=== PATIENT | male | born 1975 | race Caucasian/White ===

== ENCOUNTER → 2016-11-10 | Outpatient (CLI) | payer OTHER ==
[~2016-11-10] MED LIST: GABA1CAP4 PO; IBUP-103 PO; PRED20TA PO; TRAM-10 PO
--- NOTE | 2016-11-10 10:18 | DIAGNOSTIC IMAGING REPORT ---
MRI LUMBAR SPINE W/O CONTRAST CLINICAL HISTORY: Severe pain. Leg radiculopathy. TECHNIQUE: Sagittal and axial T1, T2 and STIR images were obtained. COMPARISON STUDY: 16 OBSERVATIONS: The vertebral bodies and posterior elements appear intact. There is no abnormal bony signal present to suggest a marrow replacement process. L1-2: There is a minor circumferential disc bulge. There is no significant spinal foraminal stenosis L2-3: No disc protrusions or extrusions. No evidence of spinal canal or neural foraminal compromise. L3-4: There is a mild circumferential disc bulge. There is no significant spinal or foraminal stenosis L4-5: There are postsurgical changes of a right hemilaminectomy. There is facet joint arthropathy. There is a small right posterior lateral and right lateral disc protrusion. There is mild deformity of thecal sac. There is no significant foraminal narrowing. L5-S1: There is a left lateral and foraminal disc protrusion with minor left-sided foraminal narrowing. The conus medullaris and cauda equina appear normal. IMPRESSION: 1. Small right lateral disc protrusion at the L4-5 level unchanged the prior study. New small right posterior lateral disc protrusion at the L4-5 level. Interval right-sided hemilaminectomy. 2. Stable small left lateral and foraminal disc protrusion at the L5-S1 level. Electronically signed by: Raul Steve M.D. 11/10/2016 10:16 AM Dictated Date/Time: 11/10/2016 10:09 AM
== END | disposition home or self-care (01) ==
LOC: C.MRIBC 09:05
PROVIDERS: ATTEND Orthopaedic Surgery Orthopaedic Surgery of the Spine
DX: M51.27 Other intervertebral disc displacement, lumbosacral region (principal); M54.30 Sciatica, unspecified side

== ENCOUNTER 2023-01-12 11:43 | Observation (INO) ==
[2023-01-12 12:36] LABS: Hematocrit (blood only) 40.4 % (42.0-52.0); Hemoglobin 13.6 g/dl (14.0-18.0); Mean Corpuscular Hemoglobin 26.7 pg (25.0-34.0); Mean Corpuscular Hgb Conc 33.7 g/dL (32.0-36.0); Mean Corpuscular Volume 79.4 fL (80.0-100.0); Mean Platelet Volume 10.5 fL (9.4-12.4); Platelet Count 343 K/uL (130-400); RDW Coefficient of Variation 11.8 % (11.5-14.5); RDW Standard Deviation 33.6 fL (36.4-46.3); Red Blood Count 5.09 M/uL (4.70-6.10); White Blood Count 8.73 K/ul (4.8-10.8)
--- NOTE | 2023-01-12 12:48 | Emergency Department Note ---
Impression & Plan Rectal mass, Rectal pain, Bright red rectal bleeding ED Provider Note NAME: BECKY HAYWOOD AGE: 47 SEX: M : 1975 ARRIVES VIA: Walk-In INFORMANT: Patient, ED PROVIDER(S): Aaron Sebastian DO CHIEF COMPLAINT: Rectal pain HPI: The patient is a 47-year-old male who presented to the emergency department for an evaluation of rectal bleeding. The patient was seen at his primary surgeon's office and then was sent directly to the emergency department. He notices rectal fullness as well as varying episodes of rectal bleeding. This started approximately 2 to 3 years ago. The patient was scheduled for a colonoscopy but because of COVID it was scheduled and due to issues over the last 2 years has not been able to reschedule this. He went to see Dr. Ferraro today and was sent directly to the emergency department for further evaluation. ROS: See above HPI for pertinent positives & negatives. A total of 10 systems reviewed and were otherwise negative. PAST MEDICAL HISTORY: See Below PAST SURGICAL HISTORY: See Below FAMILY HISTORY: See Below SOCIAL HISTORY: See Below HOME MEDICATIONS: See Below ALLERGIES: See Below VITALS: See Below PHYSICAL EXAMINATION: GENERAL: The patient is awake and alert. He is very anxious appearing. EYES: The conjunctivae are clear. The pupils are round and reactive. EARS, NOSE, MOUTH AND THROAT: The nose is without any evidence of any deformity. NECK: The neck is nontender and supple. RESPIRATORY: Normal respiratory effort is noted there is no evidence of wheezing rhonchi or rales CARDIOVASCULAR: Regular rate and rhythm noted there no murmurs rubs or gallops normal S1 normal S2. GASTROINTESTINAL: The abdomen is soft. Abdomen is nontender. Rectal exam reve aled what appears to be an internal hemorrhoid versus a mass. It was very friable. Active bleeding was noted. MUSCULOSKELETAL/EXTREMITIES: There is no evidence of gross deformity full range of motion is noted in the hips and shoulders. SKIN: There is no obvious evidence of any rash. There are no petechiae, pallor or cyanosis noted. NEUROLOGIC: Patient is awake alert and oriented x3. Gait was steady. MEDICAL DECISION MAKING: The patient is a 47-year-old male who presented to the emergency department for an evaluation of rectal bleeding. He also started having fullness in his rectum and had a protruding mass. He was seen by his primary care physician and sent to the emergency department. On my exam I did find the patient to have a mass which could be an internal polyp versus a neoplastic process versus an internal hemorrhoid. The patient was evaluated by general surgery in the emergency department. It was felt that the patient may require an expedited work-up. For this reason I discussed his condition with the on-call prepress manager as well as the on-call [facility] hospitalist. They have agreed to evaluate patient in the emergency department for further management and disposition. Triage Nursing notes reviewed. Prior medical records reviewed Vital Signs: reviewed and remarkable for no significant abnormalities Differential diagnosis: Diverticulosis, AVM, coagulopathy, colitis, inflammatory bowel disease, malignancy, Keyanna-Edwards tear, esophagitis, peptic ulcer disease, variceal bleed, gastritis, epistaxis, fissure, hemorrhoids, as well as other pathologies. ER treatment provided: See below Diagnostics interpreted by me: ECG: none Cardiac Monitoring: An order was placed for continuous cardiac monitoring. The monitor shows a rate of 85 bpm with sinus rhythm. Laboratory studies: As stated above and show below. Imaging studies: See below. Radiographic imaging was reviewed by myself Consultation(s): I discussed this case with Chani who is on for the surgical group. They will evaluate the patient in the emergency department. I discussed this case with Dr. Wyatt who is on for gastroenterology. He does recommend a prep and then colonoscopy tomorrow[facility] the [facility]. They will evaluate the patient in the emergency department. Past Med/Surg History Medical History (Updated 01/12/23 @ 19:48 by Aaron Sebastian DO) Bright red blood per rectum Diarrhea H/O meningioma of the brain (~2009) no surgical intervention. History of COVID-19 tested positive 10/2020 -> cough, fever, chills, SOB, & fatigue. +covid pneumonia. no hospitalization. tested positive 12/04/20. mild cough, no fever, no chills, mild SOB with fatigue still. Surgical History History of back surgery lumbar History of colonoscopy S/P shoulder surgery S/P wisdom tooth extraction Family History (Updated 01/12/23 @ 16:01 by KENY Springer) Mother Colorectal cancer Cancer breast cancer and colon cancer Father Prostate cancer Other No family history of adverse response to anesthesia Denies family history of Ovarian cancer Myocardial infarction Breast cancer Social History Smoking Status: Former smoker Tobacco Type: Cigarettes Age Started Using Tobacco: 14; Age Quit Using Tobacco: 18; packs per day: 0.5; Second Hand Exposure: No; Do You Dip or Chew Tobacco: No; Hx Alcohol Use: No Hx Substance Use: No Preferred Language: Sinhala Communication Ability: Effective Visual Impairment: No Limitations Hearing Ability: Normal Foundation Relations Manager Required: No Beliefs That Will Affect Care: None marital status: Current Living Situation: Spouse and Family current occupational status: employed 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 Other Information That Helps Us Care for You: No Feels Safe at Home: Yes Childhood Exposure to Second-Hand Smoke: No Diet: regular Dental Care, Regularly: Yes Physical Activity Frequency: 3-4 Times per Week Seatbelt Use: always Sunscreen Use: No Assistive Devices: None Allergies Allergies Allergy/AdvReac Type Severity Reaction Status Date / Time oxycodone AdvReac Severe GI SYMPTOMS Verified 01/12/23 15:48 Home Meds Home Medications Medication Instructions Recorded Confirmed No Known Home Medications 01/12/23 01/12/23 Results & Data (ED) Vital Signs Vital Signs - 24 hr 01/12/23 11:48 01/12/23 12:24 01/12/23 12:50 Temperature 36.9 C Temperature Source Temporal Artery Scan Pulse Rate - Lying 93 H Pulse Rate - Sitting 108 H Pulse Rate - Standing 100 H Pulse Rate 103 H Pulse Rhythm Regular Pulse Strength Normal Respiratory Rate 20 Respiratory Effort / Characteristics Non-Labored Spontaneous Respiratory Depth Normal Respiratory Pattern Regular Blood Pressure - Lying 128/92 Blood Pressure - Sitting 126/79 Blood Pressure- Standing 128/100 Blood Pressure 151/113 H Blood Pressure [Left Arm] Blood Pressure Mean 125 Blood Pressure Mean [Left Arm] Blood Pressure Position Sitting Pulse Oximetry 98 97 Oxygen Delivery Method Room Air Room Air Sepsis Recent Fever Within 48 Hours No Sepsis New/Unexplained Change in Mental Status No Sepsis Action Taken by Nursing No Action Required 01/12/23 15:27 Temperature Temperature Source Pulse Rate - Lying Pulse Rate - Sitting Pulse Rate - Standing Pulse Rate Pulse Rhythm Pulse Strength Respiratory Rate Respiratory Effort / Characteristics Respiratory Depth Respiratory Pattern Blood Pressure - Lying Blood Pressure - Sitting Blood Pressure- Standing Blood Pressure Blood Pressure [Left Arm] 160/92 H Blood Pressure Mean Blood Pressure Mean [Left Arm] 114 Blood Pressure Position Pulse Oximetry Oxygen Delivery Method Sepsis Recent Fever Within 48 Hours Sepsis New/Unexplained Change in Mental Status Sepsis Action Taken by Half-Way Medications Current Medication List: was personally reviewed by me Laboratory Data Attestation: I reviewed the patient's lab results. 01/12/23 12:14 01/12/23 12:07 Lab Results 01/12/23 01/12/23 01/12/23 Range/Units 12:07 12:07 12:12 WBC (4.8-10.8) K/ul RBC (4.70-6.10) M/uL Hgb (14.0-18.0) g/dl Hct (42.0-52.0) % MCV (80.0-100.0) fL MCH (25.0-34.0) pg MCHC (32.0-36.0) g/dL RDW Std Deviation (36.4-46.3) fL RDW Coeff of Jillian (11.5-14.5) % Plt Count (130-400) K/uL MPV (9.4-12.4) fL PT 10.9 (9.0-12.0) Seconds INR 1.0 (0.9-1.1) APTT 26.0 (21.0-31.0) Seconds PTT Ratio 0.9 Sodium 140 (136-145) mmol/L Potassium 3.3 L (3.5-5.1) mmol/L Chloride 103 (98-107) mmol/L Carbon Dioxide 28 (21-32) mmol/L Anion Gap 9 (3-11) BUN 13 (6-23) mg/dl Creatinine 1.22 (0.6-1.4) mg/dl Est Cr Clr Drug Dosing Not Reportable Est GFR ( Amer) 81.3 ml/min Est GFR (Non-Af Amer) 70.2 ml/min BUN/Creatinine Ratio 10.7 (10-20) Glucose 103 H (70-99(Fasting)) mg/dl Calcium 9.1 (8.6-10.3) mg/dl Iron 36 (35-175) mcg/dl TIBC 446 (250-450) mcg/dl Unsaturated IBC 410 H (155-355) mcg/dl Transferrin % Sat 8 L (20-50) % Total Bilirubin 1.0 (0.2-1.0) mg/dl AST 14 (13-39) U/L ALT 12 (7-52) U/L Alkaline Phosphatase 49 (34-104) U/L Troponin I High Sens 2.5 (0-20) pg/ml Total Protein 7.8 (6.0-8.3) gm/dl Albumin 4.5 (3.4-5.0) gm/dl Globulin 3.3 (2.5-4.0) gm/dl Albumin/Globulin Ratio 1.4 (0.9-2) SARS-CoV-2, RNA, NAAT (NEGATIVE) Blood Type B Positive Antibody Screen NEGATIVE 01/12/23 01/12/23 Range/Units 12:14 12:54 WBC 8.73 (4.8-10.8) K/ul RBC 5.09 (4.70-6.10) M/uL Hgb 13.6 L (14.0-18.0) g/dl Hct 40.4 L (42.0-52.0) % MCV 79.4 L (80.0-100.0) fL MCH 26.7 (25.0-34.0) pg MCHC 33.7 (32.0-36.0) g/dL RDW Std Deviation 33.6 L (36.4-46.3) fL RDW Coeff of Jillian 11.8 (11.5-14.5) % Plt Count 343 (130-400) K/uL MPV 10.5 (9.4-12.4) fL PT (9.0-12.0) Seconds INR (0.9-1.1) APTT (21.0-31.0) Seconds PTT Ratio Sodium (136-145) mmol/L Potassium (3.5-5.1) mmol/L Chloride (98-107) mmol/L Carbon Dioxide (21-32) mmol/L Anion Gap (3-11) BUN (6-23) mg/dl Creatinine (0.6-1.4) mg/dl Est Cr Clr Drug Dosing Est GFR ( Amer) ml/min Est GFR (Non-Af Amer) ml/min BUN/Creatinine Ratio (10-20) Glucose (70-99(Fasting)) mg/dl Calcium (8.6-10.3) mg/dl Iron (35-175) mcg/dl TIBC (250-450) mcg/dl Unsaturated IBC (155-355) mcg/dl Transferrin % Sat (20-50) % Total Bilirubin (0.2-1.0) mg/dl AST (13-39) U/L ALT (7-52) U/L Alkaline Phosphatase (34-104) U/L Troponin I High Sens (0-20) pg/ml Total Protein (6.0-8.3) gm/dl Albumin (3.4-5.0) gm/dl Globulin (2.5-4.0) gm/dl Albumin/Globulin Ratio (0.9-2) SARS-CoV-2, RNA, NAAT NEGATIVE (NEGATIVE) Blood Type Antibody Screen Administered Medications Polyethylene Glycol/Electrolytes (Lavage Solution 4000ml) 16 dose PO TODAY@1800 SRUTHI Stop: 01/12/23 21:59 Last Admin: 01/12/23 18:22 Dose: 16 dose Documented By: ADRIANA Discontinued Medications Acetaminophen (Acetaminophen 325 Mg Tab) 650 mg PO NOW STA Stop: 01/12/23 15:31 Last Admin: 01/12/23 15:34 Dose: 650 mg Documented By: MAGGIE Ioversol (Optiray 320 100ml) 91 ml IV ONCE ONE Stop: 01/12/23 16:02 Last Admin: 01/12/23 16:01 Dose: 91 ml Documented By: KRYS Potassium Chloride (Potassium Chloride Crtab 20 Meq Tabcr) 40 meq PO NOW STA Stop: 01/12/23 16:14 Last Admin: 01/12/23 16:37 Dose: 40 meq Documented By: MAGGIE Imaging Data Attestation: I personally reviewed and interpreted this imaging study as follows: My Impression: CT scan of the abdomen and pelvis as well as the chest were obtained in the emergency department. My interpretation is no free air or definite infiltrate, there is no signs of bowel obstruction, final report below. Radiologist's Impression: Abdomen/Pelvis CT 01/12/23 15:30 CT SCAN OF THE CHEST WITHOUT IV CONTRAST; CT SCAN OF THE ABDOMEN AND PELVIS WITH IV CONTRAST CLINICAL HISTORY: Rectal mass. COMPARISON STUDY: Chest CT dated 10/06/2007. Abdominal CT dated 01/17/2009. TECHNIQUE: Unenhanced CT scan of the chest was performed from the thoracic inlet to the upper abdomen. Subsequently, following the IV administration of 91 of Optiray 320, CT scan of the abdomen and pelvis was performed from the lung bases to the proximal femora. Images are reviewed in the axial, sagittal, and coronal planes. IV contrast was administered without complication. A dose lowering technique was utilized adhering to the principles of ALARA. CT DOSE: 1517.47 mGy.cm FINDINGS: CHEST: Thyroid: Imaged portions of the thyroid gland are normal in size and attenuation. Thoracic aorta: The thoracic aorta is normal in caliber and demonstrates standard 3-vessel arch anatomy. Heart: The heart is normal in size and without pericardial effusion. Lungs and pleural spaces: There is mild emphysema. No airspace consolidation or pleural effusion is identified. Mild atelectasis is seen at the lung bases. The trachea and central airways are clear. There are scattered pulmonary and pleural-based nodules. These are unchanged as compared to the 2008 examination and of doubtful significance. A claim service representative 5 mm nodule in the left lower lobe is seen on image #205, and a claim service representative right lower lobe nodule measuring 4 mm is seen on image #190. No suspicious pulmonary lesion is identified. Mediastinum: There is no mediastinal lymphadenopathy. Samara: Not well assessed without IV contrast. Axillae: There is no axillary lymphadenopathy. Bony thorax: No lytic or blastic lesions are identified. ABDOMEN AND PELVIS: Liver: The contrast-enhanced liver is normal in size, contour, and attenuation. There is no intrahepatic biliary ductal dilatation. The hepatic veins and portal veins are patent. Gallbladder: Unremarkable. Spleen: Normal in size and attenuation. Pancreas: Unremarkable. Adrenal glands: Unremarkable. Kidneys: The contrast enhanced kidneys are normal in size and without hydronephrosis. The kidneys enhance symmetrically. Abdominal vasculature: The abdominal aorta is normal in course and caliber. Bowel: There are scattered colonic diverticula without CT evidence of acute diverticulitis. No bowel obstruction is seen. The appendix is well-visualized and normal. The rectum is normal as visualized. No perirectal lymphadenopathy is seen. Peritoneum: There is no intraperitoneal free air or abdominal ascites. Lymphadenopathy: None. Pelvic viscera: The bladder, prostate, and seminal vesicles are normal as visualized. Skeletal structures: No lytic or blastic lesions are seen. There is mild lumbosacral spondylosis. Postlaminectomy change is noted in the lumbar spine. IMPRESSION: 1. There is no evidence of metastatic disease in the chest, abdomen, or pelvis. 2. There is no CT evidence of rectal mass lesion. Correlate with endoscopic findings. 3. Scattered subcentimeter pulmonary nodules have been present dating back to 2007 and are of doubtful significance. No suspicious pulmonary lesion is seen. 4. There is no airspace consolidation or pleural effusion. 5. Additional findings as above. ACT 112: Negative or not required by law. Electronically signed by: Antonio Morfin M.D. 01/12/2023 7:[address] 01/12/23 15:30 CT SCAN OF THE CHEST WITHOUT IV CONTRAST; CT SCAN OF THE ABDOMEN AND PELVIS WITH IV CONTRAST CLINICAL HISTORY: Rectal mass. COMPARISON STUDY: Chest CT dated 10/06/2007. Abdominal CT dated 01/17/2009. TECHNIQUE: Unenhanced CT scan of the chest was performed from the thoracic inlet to the upper abdomen. Subsequently, following the IV administration of 91 of Optiray 320, CT scan of the abdomen and pelvis was performed from the lung bases to the proximal femora. Images are reviewed in the axial, sagittal, and coronal planes. IV contrast was administered without complication. A dose lowering technique was utilized adhering to the principles of ALARA. CT DOSE: 1517.47 mGy.cm FINDINGS: CHEST: Thyroid: Imaged portions of the thyroid gland are normal in size and attenuation. Thoracic aorta: The thoracic aorta is normal in caliber and demonstrates standard 3-vessel arch anatomy. Heart: The heart is normal in size and without pericardial effusion. Lungs and pleural spaces: There is mild emphysema. No airspace consolidation or pleural effusion is identified. Mild atelectasis is seen at the lung bases. The trachea and central airways are clear. There are scattered pulmonary and pleural-based nodules. These are unchanged as compared to the 2008 examination and of doubtful significance. A claim service representative 5 mm nodule in the left lower lobe is seen on image #205, and a claim service representative right lower lobe nodule measuring 4 mm is seen on image #190. No suspicious pulmonary lesion is identified. Mediastinum: There is no mediastinal lymphadenopathy. Samara: Not well assessed without IV contrast. Axillae: There is no axillary lymphadenopathy. Bony thorax: No lytic or blastic lesions are identified. ABDOMEN AND PELVIS: Liver: The contrast-enhanced liver is normal in size, contour, and attenuation. There is no intrahepatic biliary ductal dilatation. The hepatic veins and portal veins are patent. Gallbladder: Unremarkable. Spleen: Normal in size and attenuation. Pancreas: Unremarkable. Adrenal glands: Unremarkable. Kidneys: The contrast enhanced kidneys are normal in size and without hydronephrosis. The kidneys enhance symmetrically. Abdominal vasculature: The abdominal aorta is normal in course and caliber. Bowel: There are scattered colonic diverticula without CT evidence of acute diverticulitis. No bowel obstruction is seen. The appendix is well-visualized and normal. The rectum is normal as visualized. No perirectal lymphadenopathy is seen. Peritoneum: There is no intraperitoneal free air or abdominal ascites. Lymphadenopathy: None. Pelvic viscera: The bladder, prostate, and seminal vesicles are normal as visual ized. Skeletal structures: No lytic or blastic lesions are seen. There is mild lumbosacral spondylosis. Postlaminectomy change is noted in the lumbar spine. IMPRESSION: 1. There is no evidence of metastatic disease in the chest, abdomen, or pelvis. 2. There is no CT evidence of rectal mass lesion. Correlate with endoscopic findings. 3. Scattered subcentimeter pulmonary nodules have been present dating back to 2007 and are of doubtful significance. No suspicious pulmonary lesion is seen. 4. There is no airspace consolidation or pleural effusion. 5. Additional findings as above. ACT 112: Negative or not required by law. Electronically signed by: Antonio Morfin M.D. 01/12/2023 7:23 PM Discharge Plan Visit Data Chief Complaint: Rectal Pain Stated Complaint: REFERRED BY DR. FERRARO ED Provider: Aaron Sebastian Discharge Problem: Rectal mass, Rectal pain, Bright red rectal bleeding Patient Disposition: Admitted As Inpatient Discharge Instructions Interventions: ED Discharge Assessment Last Done: 01/12/23 16:26
[2023-01-12 12:53] LABS: Alanine Aminotransferase 12 U/L (7-52); Albumin Globulin Ratio 1.4 (0.9-2); Albumin Level 4.5 gm/dl (3.4-5.0); Alkaline Phosphatase 49 U/L (34-104); Anion Gap 9 (3-11); Aspartate Aminotransferase 14 U/L (13-39); BUN Creatinine Ratio 10.7 (10-20); Blood Urea Nitrogen 13 mg/dl (6-23); Calcium 9.1 mg/dl (8.6-10.3); Carbon Dioxide 28 mmol/L (21-32); Chloride 103 mmol/L (98-107); Est GFR (African American) 81.3 ml/min; Est GFR (Non-African American) 70.2 ml/min; Globulin 3.3 gm/dl (2.5-4.0); Glucose 103 mg/dl (70-99(Fasting)); Potassium 3.3 mmol/L (3.5-5.1); Sodium 140 mmol/L (136-145); Total Protein 7.8 gm/dl (6.0-8.3)
[2023-01-12 12:59] LABS: Troponin I High Sensitivity 2.5 pg/ml (0-20)
[2023-01-12 13:04] LABS: Partial Thromboplastin Ratio 0.9; Prothrombin Time 10.9 Seconds (9.0-12.0)
--- NOTE | 2023-01-12 14:50 | Surgery Consultation ---
Date of Consultation January 12, 2023 Assessment & Plan (1) Rectal mass: (2) Rectal pain: Plan 47 year-old male with chronic GI issues for a few years involving rectal irritation, diarrhea, rectal bleeding, and rare stool incontinence who presented to ED from PCP office due to severe rectal/anal pain that began suddenly Tuesday with a palpable mass. Family history of colon cancer in mother in late 50s-60s. History of prior colonoscopy roughly around 2014. Scheduled for colonoscopy in 2020 but this was cancelled twice due to COVID. External rectal examination showing 4 cm bilobed very friable rectal mass. Plan: Would recommend medicine admit and GI consultation for evaluation with complete colonoscopy and biopsy of this rectal mass. DR. Johnson Discussed with DR. Sebastian. Dr. Johnson has seen and performed examination on patient, see addendum for further recommendations/plan. Supervising Physician Co-Signing Physician Notes I have seen and examined the patient personally and agree with the above assessment and plan. In brief, it appears that he has a rectal mass/anal canal mass. We discussed the findings with him. We will have him admitted to the hospitist service for colonoscopy with GI with biopsy of the mass. He will most likely need to follow-up with colorectal surgery as an outpatient once this is complete. We will sign off for now. Please call with any questions or concerns . History of Present Illness Reason for Consultation: Rectal mass vs hemorrhoid Requesting Physician: Dr. Sebastian Attending Physician: Dr. Sebastian History of Present Illness Maicol is a 47 yo male who presented to emergency department from her emergency department with complaint of rectal/anal pain and a mass with severe pain. Maicol states that he has been having some GI issues for a few years regarding with "irritation" and diarrhea. Was scheduled for colonoscopy in 2020 but this was cancelled twice due to COVID. Has had colonoscopy previously when younger due to family history of colon cancer in mother in her late 50's-60's. States he has noticed some rectal incontinence in past and pain and some rectal bleeding with bowel movements. On Tuesday, he noticed severe rectal pain with lump palpable. States noticed bleeding with bowel movement. Bowel movements have been difficult. Urinating also causes pain. States he the pain was pretty unbearable. Currently states pain is gone. Allergies Allergy/AdvReac Type Severity Reaction Status Date / Time oxycodone AdvReac Severe GI SYMPTOMS Verified 01/12/23 15:48 Home Medications Medication Instructions Recorded Confirmed Type No Known Home Medications 01/12/23 01/12/23 History Patient History Medical History (Updated 01/12/23 @ 19:48 by Aaron Sebastian DO) Bright red blood per rectum Diarrhea H/O meningioma of the brain (~2009) no surgical intervention. History of COVID-19 tested positive 10/2020 -> cough, fever, chills, SOB, & fatigue. +covid pneumonia. no hospitalization. tested positive 12/04/20. mild cough, no fever, no chills, mild SOB with fatigue still. Surgical History History of back surgery lumbar History of colonoscopy S/P shoulder surgery S/P wisdom tooth extraction Family History (Updated 01/12/23 @ 16:01 by KENY Springer) Mother Colorectal cancer Cancer breast cancer and colon cancer Father Prostate cancer Other No family history of adverse response to anesthesia Denies family history of Ovarian cancer Myocardial infarction Breast cancer Social History Smoking Status: Former smoker Tobacco Type: Cigarettes Age Started Using Tobacco: 14; Age Quit Using Tobacco: 18; packs per day: 0.5; Second Hand Exposure: No; Do You Dip or Chew Tobacco: No; Hx Alcohol Use: No Hx Substance Use: No Preferred Language: Yi Communication Ability: Effective Visual Impairment: No Limitations Hearing Ability: Normal Twister Tender Required: No Beliefs That Will Affect Care: None marital status: Current Living Situation: Spouse and Family current occupational status: employed 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 Other Information That Helps Us Care for You: No Feels Safe at Home: Yes Childhood Exposure to Second-Hand Smoke: No Diet: regular Dental Care, Regularly: Yes Physical Activity Frequency: 3-4 Times per Week Seatbelt Use: always Sunscreen Use: No Assistive Devices: None Physical Exam Constitutional: well developed, well nourished, cooperative and comfortable; no acute distress Respiratory: normal respiratory effort; no respiratory distress Gastrointestinal (Abdomen): Rectal Exam: + rectal mass (bilobed rectal mass measuring about 4 cm with friable tissue) Skin: no rashes, warm and dry Psychiatric: Orientation: alert and oriented x 3 Affect: + tearful affect Results & Data Vital Signs (Past 12 Hours) Vital Signs Temp Pulse Resp BP Pulse Ox O2 Del Method 01/12/23 12:50 97 Room Air 01/12/23 11:48 36.9 C 103 H 20 151/113 H 98 Room Air Laboratory Results 01/12/23 01/12/23 01/12/23 Range/Units 12:54 12:14 12:12 WBC 8.73 (4.8-10.8) K/ul RBC 5.09 (4.70-6.10) M/uL Hgb 13.6 L (14.0-18.0) g/dl Hct 40.4 L (42.0-52.0) % MCV 79.4 L (80.0-100.0) fL MCH 26.7 (25.0-34.0) pg MCHC 33.7 (32.0-36.0) g/dL RDW Std Deviation 33.6 L (36.4-46.3) fL RDW Coeff of Jillian 11.8 (11.5-14.5) % Plt Count 343 (130-400) K/uL MPV 10.5 (9.4-12.4) fL PT (9.0-12.0) Seconds INR (0.9-1.1) APTT (21.0-31.0) Seconds PTT Ratio Sodium (136-145) mmol/L Potassium (3.5-5.1) mmol/L Chloride (98-107) mmol/L Carbon Dioxide (21-32) mmol/L Anion Gap (3-11) BUN (6-23) mg/dl Creatinine (0.6-1.4) mg/dl Est Cr Clr Drug Dosing Est GFR ( Amer) ml/min Est GFR (Non-Af Amer) ml/min BUN/Creatinine Ratio (10-20) Glucose (70-99(Fasting)) mg/dl Calcium (8.6-10.3) mg/dl Total Bilirubin (0.2-1.0) mg/dl AST (13-39) U/L ALT (7-52) U/L Alkaline Phosphatase (34-104) U/L Troponin I High Sens (0-20) pg/ml Total Protein (6.0-8.3) gm/dl Albumin (3.4-5.0) gm/dl Globulin (2.5-4.0) gm/dl Albumin/Globulin Ratio (0.9-2) SARS-CoV-2, RNA, NAAT NEGATIVE (NEGATIVE) Blood Type B Positive Antibody Screen NEGATIVE 01/12/23 01/12/23 Range/Units 12:07 12:07 WBC (4.8-10.8) K/ul RBC (4.70-6.10) M/uL Hgb (14.0-18.0) g/dl Hct (42.0-52.0) % MCV (80.0-100.0) fL MCH (25.0-34.0) pg MCHC (32.0-36.0) g/dL RDW Std Deviation (36.4-46.3) fL RDW Coeff of Jillian (11.5-14.5) % Plt Count (130-400) K/uL MPV (9.4-12.4) fL PT 10.9 (9.0-12.0) Seconds INR 1.0 (0.9-1.1) APTT 26.0 (21.0-31.0) Seconds PTT Ratio 0.9 Sodium 140 (136-145) mmol/L Potassium 3.3 L (3.5-5.1) mmol/L Chloride 103 (98-107) mmol/L Carbon Dioxide 28 (21-32) mmol/L Anion Gap 9 (3-11) BUN 13 (6-23) mg/dl Creatinine 1.22 (0.6-1.4) mg/dl Est Cr Clr Drug Dosing Not Reportable Est GFR ( Amer) 81.3 ml/min Est GFR (Non-Af Amer) 70.2 ml/min BUN/Creatinine Ratio 10.7 (10-20) Glucose 103 H (70-99(Fasting)) mg/dl Calcium 9.1 (8.6-10.3) mg/dl Total Bilirubin 1.0 (0.2-1.0) mg/dl AST 14 (13-39) U/L ALT 12 (7-52) U/L Alkaline Phosphatase 49 (34-104) U/L Troponin I High Sens 2.5 (0-20) pg/ml Total Protein 7.8 (6.0-8.3) gm/dl Albumin 4.5 (3.4-5.0) gm/dl Globulin 3.3 (2.5-4.0) gm/dl Albumin/Globulin Ratio 1.4 (0.9-2) SARS-CoV-2, RNA, NAAT (NEGATIVE) Blood Type Antibody Screen
[2023-01-12] MEDS ORDERED: ACETAMINOPHEN 325 MG TAB PO STA (15:30)
[2023-01-12] MEDS ORDERED: OPTIRAY 320 100ml IV ONE (16:01)
[2023-01-12] MEDS ORDERED: POTASSIUM CHLORIDE CRTAB 20 MEQ TABCR PO STA (16:13)
--- NOTE | 2023-01-12 16:14 | History & Physical Report ---
Date of Service January 12, 2023 Assessment & Plan (1) Rectal mass: Plan: Patient presents with acute worsening of rectal pain/fullness and feeling of a mass protruding from rectum - Associated with pain, bleeding, stool caliber changes, and urinary difficulty, - Concern for cancer with family history of colon cancer- obtain CT scan with IV contrast of abdomen and pelvis for evaluation - NPO after midnight- LR @ 80ml/hour after midnight - Bowel prep to start at 1800 with Colyte with repeat 1 gallon if needed until clear - Appreciate GI consultation - Appreciate Surgical Consultation -CT scan of chest eval for any other involvement - mildly microcytic on exa- obtain iron studies in morning Patient is questioning to possibly wait on a biopsy- discussed with the patient that this will be primary reason for colonoscopy for a diagnosis and further planning. Did let Dr. Wyatt know the patient will have questions regarding procedure. (2) Rectal pain: Plan: As above- colonoscopic evaluation planned (3) Difficulty in urination: Plan: Difficulty with initiating stream- however does feel he empties bladder fully - obtain PSA - CT abdomen/pelvis as above - Bladder scan and straight cath if needed (4) Hypokalemia: Plan: Replete with 40meq oral potassium follow in am labs History of Present Illness Chief Complaint: rectal mass Primary Care Provider: Alvin Johnson, DO 47 YOM with medical history of: Head bleed secondary to ? menigioma, back surgery, chronic diarrhea. Patient is tearful and is difficult historian at this time secondary to current medical issue. Patient comes to the EMD today at recommendation of PCP for worsening of rectal pain/fullness and concern for perrectal mass. Patient states that this has been ongoing over the past years or so however the pain with defecation and straining needed to achieve bowel movement is why he saught medical care today. The patient states that around Tuesday with bowel movement nad wiping he felt a mass around his rectum. He reports that he has noted blood in stool for "quite a while" and at times he would note it on his car seat as well as running down his legs, but this would subside and not be present on following days. He does voice history of chronic diarrhea at times with blood as well "but I have had parasites before"- no information showing up in EMR of this. He was being worked up for an EGD and Colonoscopy in the past but appears to have not re-scheduled following COVID delays. He does endorse a family history of Colon cancer in both parents - believes both diagnosed after their 60s. Colonoscopy reported in 2014 as normal. In the EMD the patient had routine labs performed. Surigcal Consultation was obtained by [facility] provider. GI consultation also obtained. Patient will be admitted for colonoscopy preparation with colonoscopy in the morning. Will obtain CT of the abdomen/pelvis with conrast and non-con ct of chest for any lymphadenopathy or masses. Patient reports being a breif smoker when younger ~ 4years worth and denies ETOH use. CODE: FULL COVID: NEGATIVE Allergies Allergy/AdvReac Type Severity Reaction Status Date / Time oxycodone AdvReac Severe GI SYMPTOMS Verified 01/12/23 15:48 Home Medications Medication Instructions Recorded Confirmed Type No Known Home Medications 01/12/23 01/12/23 History Past Med/Surg History Medical History (Updated 01/12/23 @ 16:13 by KENY Springer) Bright red blood per rectum Diarrhea H/O meningioma of the brain (~2009) no surgical intervention. History of COVID-19 tested positive 10/2020 -> cough, fever, chills, SOB, & fatigue. +covid pneumonia. no hospitalization. tested positive 12/04/20. mild cough, no fever, no chills, mild SOB with fatigue still. Surgical History History of back surgery lumbar History of colonoscopy S/P shoulder surgery S/P wisdom tooth extraction Family History (Updated 01/12/23 @ 16:01 by KENY Springer) Mother Colorectal cancer Cancer breast cancer and colon cancer Father Prostate cancer Other No family history of adverse response to anesthesia Denies family history of Ovarian cancer Myocardial infarction Breast cancer Social History Smoking Status: Former smoker Tobacco Type: Cigarettes Age Started Using Tobacco: 14; Age Quit Using Tobacco: 18; packs per day: 0.5; Second Hand Exposure: No; Do You Dip or Chew Tobacco: No; Hx Alcohol Use: No Hx Substance Use: No Preferred Language: Welsh Communication Ability: Effective Visual Impairment: No Limitations Hearing Ability: Normal Supply Chain Business Analyst Required: No Beliefs That Will Affect Care: None marital status: Current Living Situation: Spouse and Family current occupational status: employed 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 Other Information That Helps Us Care for You: No Feels Safe at Home: Yes Childhood Exposure to Second-Hand Smoke: No Diet: regular Dental Care, Regularly: Yes Physical Activity Frequency: 3-4 Times per Week Seatbelt Use: always Sunscreen Use: No Assistive Devices: None Review of Systems Review of Systems: REVIEW OF SYSTEMS: Constitutional: No fever, sweats or chills Eyes: No diplopia, no worsening or blurred vision ENT: normal hearing, no trouble swallowing Respiratory: No cough, sputum, dyspnea at rest or on exertion Cardiovascular: No chest pain, tightness or palpitations Abdomen: (+) pain, diarrhea and constipation, rectal fullness/pain and bleeding. NO nausea, vomiting, or early satiety Musculoskeletal: (+) chronic back pain and shoulder pain, No joint pain, calf pain, swelling Neurologic: No weakness, numbness/tingling, or balance problems Psychiatric: (+) anxiety currently Skin: No rash or itch Physical Exam Physical Exam: PHYSICAL EXAM: General: awake, alert, tearful and anxious Head: Normocephalic, atraumatic ENT: PERRLA, EOMI, no pharyngeal exudate, mucous membranes moist Neuro: AAO x 3, speech clear and appropriate, strength intact bilaterally 5/5, sensation intact and equal all extremities and dermatomes, no pronator drift Chest: equal rise and fall of the chest, no accessory muscle use, no heaves or thrills, Clear to auscultation, on room air, Cardiac: Regular rate and rhythm, telemetry reviewed- NSR, skin warm dry, cap refill <3 seconds, peripheral pulses +2 no JVD, no murmur, no edema GI: NABS x 4 quadrants, soft, nontender to palpation, no rebound, guarding or tenderness, no epigastric pain, bilobed mass extending from rectum with old blood appearing around it, local excoration in gluteal cleft. : Spontaneously voiding however voices with difficulty starting stream, no pain, no CVA tenderness, Extremities: Normal inspection, no peripheral edema or erythema, calfs nontender to palpation Psych: tearful and anxious Results & Data Results & Data Vital Signs (Past 12 Hours) Vital Signs Temp Pulse Resp BP BP Pulse Ox O2 Del Method 01/12/23 15:27 160/92 H 01/12/23 12:50 97 Room Air 01/12/23 11:48 36.9 C 103 H 20 151/113 H 98 Room Air Laboratory Results Abnormal lab results 01/12/23 01/12/23 Range/Units 12:07 12:14 Hgb 13.6 L (14.0-18.0) g/dl Hct 40.4 L (42.0-52.0) % MCV 79.4 L (80.0-100.0) fL RDW Std Deviation 33.6 L (36.4-46.3) fL Potassium 3.3 L (3.5-5.1) mmol/L Glucose 103 H (70-99(Fasting)) mg/dl Diagnostic Findings Abdomen/Pelvis CT 01/12/23 15:30 CT SCAN OF THE CHEST WITHOUT IV CONTRAST; CT SCAN OF THE ABDOMEN AND PELVIS WITH IV CONTRAST CLINICAL HISTORY: Rectal mass. COMPARISON STUDY: Chest CT dated 10/06/2007. Abdominal CT dated 01/17/2009. TECHNIQUE: Unenhanced CT scan of the chest was performed from the thoracic inlet to the upper abdomen. Subsequently, following the IV administration of 91 of Optiray 320, CT scan of the abdomen and pelvis was performed from the lung bases to the proximal femora. Images are reviewed in the axial, sagittal, and coronal planes. IV contrast was administered without complication. A dose lowering technique was utilized adhering to the principles of ALARA. CT DOSE: 1517.47 mGy.cm FINDINGS: CHEST: Thyroid: Imaged portions of the thyroid gland are normal in size and attenuation. Thoracic aorta: The thoracic aorta is normal in caliber and demonstrates standard 3-vessel arch anatomy. Heart: The heart is normal in size and without pericardial effusion. Lungs and pleural spaces: There is mild emphysema. No airspace consolidation or pleural effusion is identified. Mild atelectasis is seen at the lung bases. The trachea and central airways are clear. There are scattered pulmonary and pleural-based nodules. These are unchanged as compared to the 2007 examination and of doubtful significance. A medical field representative 5 mm nodule in the left lower lobe is seen on image #205, and a medical field representative right lower lobe nodule measuring 4 mm is seen on image #190. No suspicious pulmonary lesion is identified. Mediastinum: There is no mediastinal lymphadenopathy. Samara: Not well assessed without IV contrast. Axillae: There is no axillary lymphadenopathy. Bony thorax: No lytic or blastic lesions are identified. ABDOMEN AND PELVIS: Liver: The contrast-enhanced liver is normal in size, contour, and attenuation. There is no intrahepatic biliary ductal dilatation. The hepatic veins and portal veins are patent. Gallbladder: Unremarkable. Spleen: Normal in size and attenuation. Pancreas: Unremarkable. Adrenal glands: Unremarkable. Kidneys: The contrast enhanced kidneys are normal in size and without hydronephrosis. The kidneys enhance symmetrically. Abdominal vasculature: The abdominal aorta is normal in course and caliber. Bowel: There are scattered colonic diverticula without CT evidence of acute dive rticulitis. No bowel obstruction is seen. The appendix is well-visualized and normal. The rectum is normal as visualized. No perirectal lymphadenopathy is seen. Peritoneum: There is no intraperitoneal free air or abdominal ascites. Lymphadenopathy: None. Pelvic viscera: The bladder, prostate, and seminal vesicles are normal as visualized. Skeletal structures: No lytic or blastic lesions are seen. There is mild lumbosacral spondylosis. Postlaminectomy change is noted in the lumbar spine. IMPRESSION: 1. There is no evidence of metastatic disease in the chest, abdomen, or pelvis. 2. There is no CT evidence of rectal mass lesion. Correlate with endoscopic findings. 3. Scattered subcentimeter pulmonary nodules have been present dating back to 2007 and are of doubtful significance. No suspicious pulmonary lesion is seen. 4. There is no airspace consolidation or pleural effusion. 5. Additional findings as above. ACT 112: Negative or not required by law. Electronically signed by: Antonio Morfin M.D. 01/12/2023 7:[address] 01/12/23 15:30 CT SCAN OF THE CHEST WITHOUT IV CONTRAST; CT SCAN OF THE ABDOMEN AND PELVIS WITH IV CONTRAST CLINICAL HISTORY: Rectal mass. COMPARISON STUDY: Chest CT dated 10/06/2007. Abdominal CT dated 01/17/2009. TECHNIQUE: Unenhanced CT scan of the chest was performed from the thoracic inlet to the upper abdomen. Subsequently, following the IV administration of 91 of Optiray 320, CT scan of the abdomen and pelvis was performed from the lung bases to the proximal femora. Images are reviewed in the axial, sagittal, and coronal planes. IV contrast was administered without complication. A dose lowering technique was utilized adhering to the principles of ALARA. CT DOSE: 1517.47 mGy.cm FINDINGS: CHEST: Thyroid: Imaged portions of the thyroid gland are normal in size and attenuation. Thoracic aorta: The thoracic aorta is normal in caliber and demonstrates standard 3-vessel arch anatomy. Heart: The heart is normal in size and without pericardial effusion. Lungs and pleural spaces: There is mild emphysema. No airspace consolidation or pleural effusion is identified. Mild atelectasis is seen at the lung bases. The trachea and central airways are clear. There are scattered pulmonary and pleural-based nodules. These are unchanged as compared to the 2008 examination and of doubtful significance. A medical field representative 5 mm nodule in the left lower lobe is seen on image #205, and a medical field representative right lower lobe nodule measuring 4 mm is seen on image #190. No suspicious pulmonary lesion is identified. Mediastinum: There is no mediastinal lymphadenopathy. Samara: Not well assessed without IV contrast. Axillae: There is no axillary lymphadenopathy. Bony thorax: No lytic or blastic lesions are identified. ABDOMEN AND PELVIS: Liver: The contrast-enhanced liver is normal in size, contour, and attenuation. There is no intrahepatic biliary ductal dilatation. The hepatic veins and portal veins are patent. Gallbladder: Unremarkable. Spleen: Normal in size and attenuation. Pancreas: Unremarkable. Adrenal glands: Unremarkable. Kidneys: The contrast enhanced kidneys are normal in size and without hydronephrosis. The kidneys enhance symmetrically. Abdominal vasculature: The abdominal aorta is normal in course and caliber. Bowel: There are scattered colonic diverticula without CT evidence of acute diverticulitis. No bowel obstruction is seen. The appendix is well-visualized and normal. The rectum is normal as visualized. No perirectal lymphadenopathy is seen. Peritoneum: There is no intraperitoneal free air or abdominal ascites. Lymphadenopathy: None. Pelvic viscera: The bladder, prostate, and seminal vesicles are normal as visual ized. Skeletal structures: No lytic or blastic lesions are seen. There is mild lumbosacral spondylosis. Postlaminectomy change is noted in the lumbar spine. IMPRESSION: 1. There is no evidence of metastatic disease in the chest, abdomen, or pelvis. 2. There is no CT evidence of rectal mass lesion. Correlate with endoscopic findings. 3. Scattered subcentimeter pulmonary nodules have been present dating back to 2008 and are of doubtful significance. No suspicious pulmonary lesion is seen. 4. There is no airspace consolidation or pleural effusion. 5. Additional findings as above. ACT 112: Negative or not required by law. Electronically signed by: Antonio Morfin M.D. 01/12/2023 7:23 PM Medications Administered Home Medications No Known Home Medications 01/12/23 [History Confirmed 01/12/23] ECG Additional Comments: pending on admission Supervising Physician Co-Signing Physician Notes Patient seen and examined, chart reviewed, case discussed with KENY Vital and I agree with the assessment and plan as above except as otherwise noted Labs and images reviewed Mr. Rivera is a 47-year-old male with a past medical history of colorectal cancer who presents with a protruding rectal mass. He is microcytic and anemic suspicious for chronic blood loss and iron deficiency anemia. At bedside he does not have abdominal tenderness, he is tearful and curious about the neck steps to diagnose what this might be. Did review extensively process of biopsy and then follow-up based on tissue-based diagnosis. Anticipate endoscopy tomorrow. Intermittently tachycardic at the bedside, regular. Agree with assessment and plan as noted above incluidng GI consult for endoscopy and biopsy, and surgical consult. Iron studies pending, patient is likely iron deficient and would benefit from Venofer while inpatient.He is hemodynamically stable on admission. PG Care Time/CCT Total # of Minutes Spent Total Time Spent with Patient: Total time spent is greater than 50% in coordination of care (as documented) at patient's floor/unit and/or counseling patient: Coding Level of Care Code 20063 INT INP/OBS CARE 2/55MIN Diagnoses Rectal mass K62.89 Rectal pain K62.89 Difficulty in urination R39.198 Hypokalemia E87.6
[2023-01-12] MEDS ORDERED: LAVAGE SOLUTION 4000ML PO SCH ×2 (18:00→22:00)
[2023-01-12 18:18] LABS: Iron 36 mcg/dl (35-175); Total Iron Binding Cap Calc 446 mcg/dl (250-450); Transferrin (FE) Percent Satur 8 % (20-50); Unsaturated Iron Binding Cap 410 mcg/dl (155-355)
--- NOTE | 2023-01-12 19:25 | CT Scan Report ---
CT SCAN OF THE CHEST WITHOUT IV CONTRAST; CT SCAN OF THE ABDOMEN AND PELVIS WITH IV CONTRAST CLINICAL HISTORY: Rectal mass. COMPARISON STUDY: Chest CT dated 10/06/2007. Abdominal CT dated 01/17/2009. TECHNIQUE: Unenhanced CT scan of the chest was performed from the thoracic inlet to the upper abdomen . Subsequently, following the IV administration of 91 of Optiray 320, CT scan of the abdomen and pelv is was performed from the lung bases to the proximal femora. Images are reviewed in the axial, sagitt al, and coronal planes. IV contrast was administered without complication. A dose lowering technique was utilized adhering to the principles of ALARA. CT DOSE: 1517.47 mGy.cm FINDINGS: CHEST: Thyroid: Imaged portions of the thyroid gland are normal in size and attenuation. Thoracic aorta: The thoracic aorta is normal in caliber and demonstrates standard 3-vessel arch anato my. Heart: The heart is normal in size and without pericardial effusion. Lungs and pleural spaces: There is mild emphysema. No airspace consolidation or pleural effusion is i dentified. Mild atelectasis is seen at the lung bases. The trachea and central airways are clear. The re are scattered pulmonary and pleural-based nodules. These are unchanged as compared to the 2008 exa mination and of doubtful significance. A agricultural sales representative 5 mm nodule in the left lower lobe is seen on image #205, and a agricultural sales representative right lower lobe nodule measuring 4 mm is seen on image #190. No rico spicious pulmonary lesion is identified. Mediastinum: There is no mediastinal lymphadenopathy. Samara: Not well assessed without IV contrast. Axillae: There is no axillary lymphadenopathy. Bony thorax: No lytic or blastic lesions are identified. ABDOMEN AND PELVIS: Liver: The contrast-enhanced liver is normal in size, contour, and attenuation. There is no intrahepa tic biliary ductal dilatation. The hepatic veins and portal veins are patent. Gallbladder: Unremarkable. Spleen: Normal in size and attenuation. Pancreas: Unremarkable. Adrenal glands: Unremarkable. Kidneys: The contrast enhanced kidneys are normal in size and without hydronephrosis. The kidneys enh ance symmetrically. Abdominal vasculature: The abdominal aorta is normal in course and caliber. Bowel: There are scattered colonic diverticula without CT evidence of acute diverticulitis. No bowel obstruction is seen. The appendix is well-visualized and normal. The rectum is normal as visualized. No perirectal lymphadenopathy is seen. Peritoneum: There is no intraperitoneal free air or abdominal ascites. Lymphadenopathy: None. Pelvic viscera: The bladder, prostate, and seminal vesicles are normal as visualized. Skeletal structures: No lytic or blastic lesions are seen. There is mild lumbosacral spondylosis. Pos tlaminectomy change is noted in the lumbar spine. IMPRESSION: 1. There is no evidence of metastatic disease in the chest, abdomen, or pelvis. 2. There is no CT evidence of rectal mass lesion. Correlate with endoscopic findings. 3. Scattered subcentimeter pulmonary nodules have been present dating back to 2007 and are of doubtfu l significance. No suspicious pulmonary lesion is seen. 4. There is no airspace consolidation or pleural effusion. 5. Additional findings as above. ACT 112: Negative or not required by law. Electronically signed by: Antonio Morfin M.D. 01/12/2023 7:23 PM
[2023-01-13] MEDS: LACTATED RINGER'S 1,000 ML IV SCH ×2 (00:31→13:33)
[2023-01-13 08:14] LABS: Basophils # (auto) 0.02 K/uL (0-0.2); Basophils % (auto) 0.3 %; Eosinophils # (auto) 0.14 K/uL (0-0.50); Eosinophils % (auto) 2.2 %; Hematocrit (blood only) 33.3 % (42.0-52.0); Hemoglobin 11.5 g/dl (14.0-18.0); Immature Granulocytes # (auto) 0.01 K/uL (0.01-0.20); Immature Granulocytes % (auto) 0.2 %; Lymphocytes # (auto) 1.19 K/uL (1.2-3.4); Lymphocytes % (auto) 18.7 %; Mean Corpuscular Hemoglobin 26.8 pg (25.0-34.0); Mean Corpuscular Hgb Conc 34.5 g/dL (32.0-36.0); Mean Corpuscular Volume 77.6 fL (80.0-100.0); Mean Platelet Volume 10.9 fL (9.4-12.4); Monocytes # (auto) 0.64 K/uL (0.11-0.59); Neutrophils # (auto) 4.37 K/uL (1.40-6.50); Neutrophils % (auto) 68.6 %; Platelet Count 257 K/uL (130-400); RDW Coefficient of Variation 11.9 % (11.5-14.5); RDW Standard Deviation 32.5 fL (36.4-46.3); Red Blood Count 4.29 M/uL (4.70-6.10); White Blood Count 6.37 K/ul (4.8-10.8)
[2023-01-13 08:31] LABS: BUN Creatinine Ratio 12.4 (10-20); Calcium 8.5 mg/dl (8.6-10.3); Creatinine Clr Calc Pharmacy 100.3 ml/min; Est GFR (African American) 107.3 ml/min; Est GFR (Non-African American) 92.6 ml/min; Potassium 3.9 mmol/L (3.5-5.1)
--- NOTE | 2023-01-13 09:09 | Gastrointestinal Consultation ---
Date of Consultation January 13, 2023 Assessment & Plan (1) Rectal mass: (2) Rectal pain: (3) Bright red rectal bleeding: Plan Discussed case with Dr. Wyatt who helped advise on plan. - patient has prepped and is agreeable to a colonoscopy for further evaluation of his symptoms and the mass. We will plan to have done today. - will also order an O&P due to reported history of parasites. - will awaits results. History of Present Illness Reason for Consultation: Rectal Mass Requesting Physician: Jamie BUSTILLO Attending Physician: Macario Dodge MD History of Present Illness Patient is a 47 year old male who presented to the ED for evaluation of rectal mass after seeing his PCP yesterday. He tells me that he first started noticing this mass 4 days ago but notes he has had issues with off and on rectal discomfort, rectal bleeding, and difficulty passing stools for years. He was initially set up for colonoscopy a few years ago but he admits he held off on doing this because of the covid pandemic. He tells me typically he has 1 bowel m ovement daily and can strain often. He tells me that over the years it was not uncommon for him to have issues with parasites. He is not sure how long ago he noticed these but tells me that he attributes these to foreign travel. He tells me was seen by infectious disease in the past but that this was over a decade ago. He tells me that his father passed from pancreatic cancer in his 60s and his m other does have a history of colon cancer in her 50s. Since admission, he has done a colonoscopy prep and is agreeable to proceed with a colonoscopy to further evaluate. Patient's last colonoscopy was in 2014 and was unremarkable at that time. rest of GI ros unremarkable. CT 01/12/23 no evidence of metastatic disease. 01/12/23 INR 1 01/13/23 wbc 6.37, hgb 11.5, hct 33.3, plts 257; BMP normal except glucose 103 and calcium 8.5. iron 35. Allergies Allergy/AdvReac Type Severity Reaction Status Date / Time oxycodone AdvReac Severe GI SYMPTOMS Verified 01/12/23 15:48 Home Medications Medication Instructions Recorded Confirmed Type No Known Home Medications 01/12/23 01/12/23 History Patient History Medical History (Updated 01/12/23 @ 19:48 by Aaron Sebastian DO) Bright red blood per rectum Diarrhea H/O meningioma of the brain (~2009) no surgical intervention. History of COVID-19 tested positive 10/2020 -> cough, fever, chills, SOB, & fatigue. +covid pneumonia. no hospitalization. tested positive 12/04/20. mild cough, no fever, no chills, mild SOB with fatigue still. Surgical History History of back surgery lumbar History of colonoscopy S/P shoulder surgery S/P wisdom tooth extraction Family History (Updated 01/12/23 @ 16:01 by KENY Springer) Mother Colorectal cancer Cancer breast cancer and colon cancer Father Prostate cancer Other No family history of adverse response to anesthesia Denies family history of Ovarian cancer Myocardial infarction Breast cancer Social History Smoking Status: Former smoker Tobacco Type: Cigarettes Age Started Using Tobacco: 14; Age Quit Using Tobacco: 18; packs per day: 0.5; Second Hand Exposure: No; Do You Dip or Chew Tobacco: No; Hx Alcohol Use: No Hx Substance Use: No Preferred Language: Colombian Communication Ability: Effective Visual Impairment: No Limitations Hearing Ability: Normal Lubrication Technician Required: No Beliefs That Will Affect Care: None marital status: Current Living Situation: Spouse and Family current occupational status: employed 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 Other Information That Helps Us Care for You: No Feels Safe at Home: Yes Childhood Exposure to Second-Hand Smoke: No Diet: regular Dental Care, Regularly: Yes Physical Activity Frequency: 3-4 Times per Week Seatbelt Use: always Sunscreen Use: No Assistive Devices: None Review of Systems Review of Systems: All systems reviewed & are unremarkable except as noted in Subjective Physical Exam Constitutional: WD/WN, vitals as above Respiratory: normal respiratory effort, lungs clear to auscultation Cardiovascular: RRR, no murmur, no edema Gastrointestinal (Abdomen): normal bowel sounds, soft, nontender, no hepatosplenomegaly Skin: no rashes, warm and dry Psychiatric: Orientation: alert and oriented x 3 Results & Data Vital Signs (Past 12 Hours) Vital Signs Temp Pulse Resp BP Pulse Ox O2 Del Method 01/13/23 07:41 97.9 F 82 18 108/71 95 Room Air Diagnostic Findings CT SCAN OF THE CHEST WITHOUT IV CONTRAST; CT SCAN OF THE ABDOMEN AND PELVIS WITH IV CONTRAST CLINICAL HISTORY: Rectal mass. COMPARISON STUDY: Chest CT dated 10/06/2007. Abdominal CT dated 01/17/2009. TECHNIQUE: Unenhanced CT scan of the chest was performed from the thoracic inlet to the upper abdomen. Subsequently, following the IV administration of 91 of Optiray 320, CT scan of the abdomen and pelvis was performed from the lung bases to the proximal femora. Images are reviewed in the axial, sagittal, and coronal planes. IV contrast was administered without complication. A dose lowering technique was utilized adhering to the principles of ALARA. CT DOSE: 1517.47 mGy.cm FINDINGS: CHEST: Thyroid: Imaged portions of the thyroid gland are normal in size and attenuation. Thoracic aorta: The thoracic aorta is normal in caliber and demonstrates standard 3-vessel arch anatomy. Heart: The heart is normal in size and without pericardial effusion. Lungs and pleural spaces: There is mild emphysema. No airspace consolidation or pleural effusion is identified. Mild atelectasis is seen at the lung bases. The trachea and central airways are clear. There are scattered pulmonary and pleural-based nodules. These are unchanged as compared to the 2008 examination and of doubtful significance. A self pay representative 5 mm nodule in the left lower lobe is seen on image #205, and a self pay representative right lower lobe nodule measuring 4 mm is seen on image #190. No suspicious pulmonary lesion is identified. Mediastinum: There is no mediastinal lymphadenopathy. Samara: Not well assessed without IV contrast. Axillae: There is no axillary lymphadenopathy. Bony thorax: No lytic or blastic lesions are identified. ABDOMEN AND PELVIS: Liver: The contrast-enhanced liver is normal in size, contour, and attenuation. There is no intrahepatic biliary ductal dilatation. The hepatic veins and portal veins are patent. Gallbladder: Unremarkable. Spleen: Normal in size and attenuation. Pancreas: Unremarkable. Adrenal glands: Unremarkable. Kidneys: The contrast enhanced kidneys are normal in size and without hydronephrosis. The kidneys enhance symmetrically. Abdominal vasculature: The abdominal aorta is normal in course and caliber. Bowel: There are scattered colonic diverticula without CT evidence of acute diverticulitis. No bowel obstruction is seen. The appendix is well-visualized and normal. The rectum is normal as visualized. No perirectal lymphadenopathy is seen. Peritoneum: There is no intraperitoneal free air or abdominal ascites. Lymphadenopathy: None. Pelvic viscera: The bladder, prostate, and seminal vesicles are normal as visualized. Skeletal structures: No lytic or blastic lesions are seen. There is mild lumbosacral spondylosis. Postlaminectomy change is noted in the lumbar spine. IMPRESSION: 1. There is no evidence of metastatic disease in the chest, abdomen, or pelvis. 2. There is no CT evidence of rectal mass lesion. Correlate with endoscopic findings. 3. Scattered subcentimeter pulmonary nodules have been present dating back to 2007 and are of doubtful significance. No suspicious pulmonary lesion is seen. 4. There is no airspace consolidation or pleural effusion. 5. Additional findings as above. ACT 112: Negative or not required by law. Electronically signed by: Antonio Morfin M.D. 01/12/2023 7:23 PM PG Care Time/CCT Total # of Minutes Spent Total Time Spent with Patient: Total time spent is greater than 50% in coordination of care (as documented) at patient's floor/unit and/or counseling patient: Coding Level of Care Code 29471 OFFICE CONSULT LVL 40M Diagnoses Rectal mass K62.89 Rectal pain K62.89 Bright red rectal bleeding K62.5 Time Spent (min) 42
--- NOTE | 2023-01-13 10:43 | Anesthesiology Consultation ---
Date of Service January 13, 2023 History Surgery Operation Date: 01/13/23 16:30 Proposed Procedures p Colonoscopy Dr. Yoselin Wyatt MD Height/Weight Height: 5 ft 11 in Weight: 84.9 kg Allergies Allergy/AdvReac Type Severity Reaction Status Date / Time oxycodone AdvReac Severe GI SYMPTOMS Verified 01/12/23 15:48 Medications Home Medications Medication Instructions Recorded Confirmed Last Taken No Known Home Medications 01/12/23 01/12/23 Unknown Active Medications Generic Name Dose Route Start Last Admin Trade Name Junaid PRN Reason Stop Dose Admin Lactated Ringer's 1,000 mls @ 80 mls/hr 01/13/23 00:00 01/13/23 00:31 Lr IV 02/12/23 00:00 80 mls/hr .[id number] SRUTHI Administration NPO Date Last Intake of Fluids: 01/12/23 Time Last Intake of Fluids: 23:59 Date Last Intake of Solids: 01/12/23 Time Last Intake of Solids: 23:59 Past Medical History Medical History (Updated 01/12/23 @ 19:48 by Aaron Sebastian DO) Bright red blood per rectum Diarrhea H/O meningioma of the brain (~2009) no surgical intervention. History of COVID-19 tested positive 10/2020 -> cough, fever, chills, SOB, & fatigue. +covid pneumonia. no hospitalization. tested positive 12/04/20. mild cough, no fever, no chills, mild SOB with fatigue still. Past Family History Family History (Updated 01/12/23 @ 16:01 by KENY Springer) Mother Colorectal cancer Cancer breast cancer and colon cancer Father Prostate cancer Other No family history of adverse response to anesthesia Denies family history of Ovarian cancer Myocardial infarction Breast cancer Past Surgical History Surgical History History of back surgery lumbar History of colonoscopy S/P shoulder surgery S/P wisdom tooth extraction Social History Smoking Status: Former smoker Do You Dip or Chew Tobacco: No Hx Alcohol Use: No Hx Substance Use: No substance use type: does not use Physical Exam Vital Signs Last Vital Signs Temp 37.1 C 01/13/23 10:29 Pulse 87 01/13/23 10:29 Resp 20 01/13/23 10:29 BP 147/94 H 01/13/23 10:29 Pulse Ox 97 01/13/23 10:29 O2 Del Method Room Air 01/13/23 10:29 Testing Laboratory Results 01/13/23 07:18 01/13/23 07:18 PT 10.9 Seconds (9.0-12.0) 01/12/23 12:07 INR 1.0 (0.9-1.1) 01/12/23 12:07 APTT 26.0 Seconds (21.0-31.0) 01/12/23 12:07 Blood Type B Positive 01/12/23 12:12 Antibody Screen NEGATIVE 01/12/23 12:12
[2023-01-13] MEDS ORDERED: LIDOCAINE 2% 2 ML VIAL/AMP(20MG/ML) INFIL ONE (10:47)
[2023-01-13] MEDS ORDERED: PROPOFOL IV EMULSION 10 MG/ML 20 ML VIAL IV ONE ×2 (10:47→11:34)
[2023-01-13] MEDS ORDERED: fentaNYL citrate PF 100 MCG/2 ML VIAL ONE (11:06)
--- NOTE | 2023-01-13 11:51 | GI REPORT ---
Patient Name: Maicol Rivera Procedure Date: 01/13/2023 10:40 AM Date of : 1975 Admit Type: Inpatient Age: 47 Gender: Male Attending MD: Alexandr Wyatt MD, Procedure: Colonoscopy Providers: Alexandr Wyatt MD Referring MD: Macario Harris d.o. Indications: Hematochezia, Suspected anorectal cancer Medicines: Monitored Anesthesia Care Complications: No immediate complications. Estimated blood loss: None. Estimated Blood Loss: Estimated blood loss: none. Procedure: Pre-Anesthesia Assessment: - Prior Anticoagulants: The patient has taken no anticoagulant or antiplatelet agents. - ASA Grade Assessment: III - A patient with severe systemic disease. After I obtained informed consent, the scope was passed under direct vision. Throughout the procedure, the patient's blood pressure, pulse, and oxygen saturations were monitored continuously. The Colonoscope was introduced through the anus and advanced to the cecum, identified by appendiceal orifice and ileocecal valve. The colonoscopy was performed without difficulty. The patient tolerated the procedure well. The quality of the bowel preparation was poor. Findings: A 4 mm polyp was found in the rectum. The polyp was sessile. The polyp was removed with a piecemeal technique using a hot snare. Resection and retrieval were complete. Estimated blood loss: none. There was a small lipoma, in the ascending colon. pillow test was positive. One medium mucosal nodule was found at the anus protruding outward, with the appearance of a thrombosed hemorrhoid rather than a mass. Biopsies were taken with a cold forceps for histology. Estimated blood loss: none. Non-bleeding internal hemorrhoids were found. Impression: - Preparation of the colon was poor. - One 4 mm polyp in the rectum, removed piecemeal using a hot snare. Resected and retrieved. - Small lipoma in the ascending colon. - Mucosal nodule at the anus. Biopsied. - Non-bleeding internal hemorrhoids. Recommendation: - Return patient to hospital crouch for ongoing care. - Advance diet as tolerated today. - Await pathology results. -drink 64-80 oz water daily Alexandr Wyatt MD 01/13/2023 11:51:24 AM This report has been signed electronically. Note Initiated On: 01/13/2023 10:40 AM Number of Addenda: 0 I attest to the content of the Intraoperative Record and orders documented therein, exceptions below {[id number]}
--- NOTE | 2023-01-13 14:34 | Anesthesiology Progress Note ---
Date of Service January 13, 2023 Anesthesia Post Procedure Vital Signs Vital Signs: Temp Pulse Pulse Resp BP BP Pulse Ox 01/13/23 12:59 36.6 C 78 16 115/74 95 01/13/23 12:23 36.8 C 82 16 134/79 98 01/13/23 12:03 79 16 129/86 98 01/13/23 11:48 72 16 118/76 97 01/13/23 11:33 80 14 92/60 L 95 01/13/23 10:29 37.1 C 87 20 147/94 H 97 01/13/23 07:41 36.6 C 82 18 108/71 95 01/12/23 20:00 01/12/23 20:54 36.3 C L 71 18 137/72 97 01/12/23 18:08 37 C 85 18 123/72 01/12/23 15:27 160/92 H O2 Del Method 01/13/23 12:59 Room Air 01/13/23 12:23 Room Air 01/13/23 12:03 Room Air 01/13/23 11:48 Room Air 01/13/23 11:33 Room Air 01/13/23 10:29 Room Air 01/13/23 07:41 Room Air 01/12/23 20:00 Room Air 01/12/23 20:54 Room Air 01/12/23 18:08 Room Air 01/12/23 15:27 Pain Intensity Rectal: Pain Intensity: 8 Transfer of Care Handoff Completed per policy Notes Mental Status: alert / awake / arousable and participated in evaluation Nausea / Vomiting: adequately controlled Pain: adequately controlled Airway Patency, RR, SpO2: stable & adequate BP & HR: stable & adequate Hydration State: stable & adequate Anesthetic Complications: no major complications apparent and Pt Satisfied with anesthetic care
--- NOTE | 2023-01-13 14:34 | Hospitalist Progress Note ---
Date of Service January 13, 2023 Assessment & Plan (1) Rectal mass: Plan: Patient presents with acute worsening of rectal pain/fullness and feeling of a mass protruding from rectum - -CT scan of chest abdomen and pelvis negative for abnormalities, Colonoscopy was able to get to Cecum, did remove rectal polyp with a hot snare, biopsy a rectal nodule and see non bleeding internal hemorrhoids Biopsy results pending advance diet Lab studies confirm iron deficiency anemia, will augment on dc, may even use mvi with iron and dietary iron sources will observe for re bleeding and allow anesthesia to wear off, anticipate home on 01/14/ if labs and vitals stable (2) Difficulty in urination: Plan: resolved, (3) Hypokalemia: Plan: Replete Admission and Anticipated Discharge Date Admission Date: January 12, 2023 Subjective pt is seen after colonoscopy, he is still lightly sedated but can answer questions he is in no distress no rectal pain from polypectomy Physical Exam Physical Exam: pt is stable with cardio pulmonary exam abdomen is soft and non tender Results & Data Results & Data Vital Signs (Past 12 Hours) Vital Signs Temp Pulse Pulse Resp BP BP Pulse Ox 01/13/23 12:59 97.9 F 78 16 115/74 95 01/13/23 12:23 98.2 F 82 16 134/79 98 01/13/23 12:03 79 16 129/86 98 01/13/23 11:48 72 16 118/76 97 01/13/23 11:33 80 14 92/60 L 95 01/13/23 10:29 98.8 F 87 20 147/94 H 97 01/13/23 07:41 97.9 F 82 18 108/71 95 O2 Del Method 01/13/23 12:59 Room Air 01/13/23 12:23 Room Air 01/13/23 12:03 Room Air 01/13/23 11:48 Room Air 01/13/23 11:33 Room Air 01/13/23 10:29 Room Air 01/13/23 07:41 Room Air Laboratory Results reviewed CBC iron studies, PG Care Time/CCT Total # of Minutes Spent Total Time Spent with Patient: Total time spent is greater than 50% in coordination of care (as documented) at patient's floor/unit and/or counseling patient: Coding Level of Care Code 47020 SUB INP/OBS CARE 2/35MIN Diagnoses Rectal mass K62.89 Difficulty in urination R39.198 Hypokalemia E87.6
[2023-01-13] MEDS ORDERED: ACETAMINOPHEN 500 MG TAB PO PRN (17:09)
[2023-01-14 06:27] LABS: Basophils # (auto) 0.02 K/uL (0-0.2); Basophils % (auto) 0.3 %; Eosinophils # (auto) 0.16 K/uL (0-0.50); Eosinophils % (auto) 2.1 %; Hematocrit (blood only) 32.9 % (42.0-52.0); Hemoglobin 11.3 g/dl (14.0-18.0); Immature Granulocytes # (auto) 0.02 K/uL (0.01-0.20); Immature Granulocytes % (auto) 0.3 %; Lymphocytes # (auto) 1.22 K/uL (1.2-3.4); Lymphocytes % (auto) 16.1 %; Mean Corpuscular Hgb Conc 34.3 g/dL (32.0-36.0); Mean Corpuscular Volume 78.5 fL (80.0-100.0); Mean Platelet Volume 10.2 fL (9.4-12.4); Monocytes # (auto) 0.72 K/uL (0.11-0.59); Monocytes % (auto) 9.5 %; Neutrophils # (auto) 5.44 K/uL (1.40-6.50); Neutrophils % (auto) 71.7 %; Platelet Count 238 K/uL (130-400); RDW Coefficient of Variation 11.9 % (11.5-14.5); RDW Standard Deviation 33.2 fL (36.4-46.3); Red Blood Count 4.19 M/uL (4.70-6.10); White Blood Count 7.58 K/ul (4.8-10.8)
[2023-01-14 06:33] LABS: Calcium 8.6 mg/dl (8.6-10.3); Creatinine Clr Calc Pharmacy 90.9 ml/min; Est GFR (African American) 95.3 ml/min; Est GFR (Non-African American) 82.2 ml/min; Potassium 3.8 mmol/L (3.5-5.1)
--- NOTE | 2023-01-14 09:49 | Communication Note ---
Date of Service: January 14, 2023 s/p colonoscopy 01/13 with poor prep, 4mm colon polyp in rectum, small lipoma, mucosal nodule at anus, non bleeding internal hemorrhoids. he tells me he had some bleeding after procedure but tells me that overall he feels well. small liquid stools yesterday after procedure. He had some bloating that has improved. no rectal pain today. denies abdominal pain. - will await pathology from recent colonoscopy. I explained that this will take a few days. I also explained that regardless of outcome, likely is going to have to be referred to colorectal surgery for further evaluation. - likely can be discharged to home and follow up in GI office in 1 week.
--- NOTE | 2023-01-14 12:09 | Communication Note ---
Date of Service: January 14, 2023 Pathology did return. A. Rectum, polypectomy: - Tubular adenoma - Negative for high grade dysplasia B. Anus, mass, biopsy: - Colonic mucosa with abundant necrotic debris - Polarizable material present Comment: The mass biopsy shows predominantly necrotic debris, blood, acute inflammation, and embedded polarizable material. No malignancy or dysplasia is seen; however, these findings donotexplain a mass-like lesion and if this lesion is clinically concerning then re-biopsy or excision is recommended. Clinical correlation required. Part B was reviewed intra-departmentally with agreement to the above diagnosis. I reviewed pathology with Dr. Wyatt and did inform patient of results. Patient will need set up with colorectal surgery for excision as outpatient. Informed Raj Diaz RN in our office of this and will work on getting this set up. In meantime, recommended miralax to keep stools looser and easier to pass.
--- NOTE | 2023-01-14 17:34 | Discharge Summary ---
Date of Service January 14, 2023 Admission HPI Per Admitting Provider 47 YOM with medical history of: Head bleed secondary to ? menigioma, back surgery, chronic diarrhea. Patient is tearful and is difficult historian at this time secondary to current medical issue. Patient comes to the EMD today at recommendation of PCP for worsening of rectal pain/fullness and concern for perrectal mass. Patient states that this has been ongoing over the past years or so however the pain with defecation and straining needed to achieve bowel movement is why he saught medical care today. The patient states that around Tuesday with bowel movement nad wiping he felt a mass around his rectum. He re ports that he has noted blood in stool for "quite a while" and at times he would note it on his car seat as well as running down his legs, but this would subside and not be present on following days. He does voice history of chronic diarrhea at times with blood as well "but I have had parasites before"- no information showing up in EMR of this. He was being worked up for an EGD and Colonoscopy in the past but appears to have not re-scheduled following COVID delays. He does endorse a family history of Colon cancer in both parents - believes both diagnosed after their 60s. Colonoscopy reported in 2015 as normal. In the EMD the patient had routine labs performed. Surigcal Consultation was obtained by EMD provider. GI consultation also obtained. Patient will be admitted for colonoscopy preparation with colonoscopy in the morning. Will obtain CT of the abdomen/pelvis with conrast and non-con ct of chest for any lymphadenopathy or masses. Patient reports being a breif smoker when younger ~ 4years worth and denies ETOH use. CODE: FULL COVID: NEGATIVE Principal Diagnosis rectal bleeding rectal polyps rectal nodule internal hemorrhoids Discharge Exam rectal exam with non bleeding hemorrhoids some mild blood tinge to rectal exam Discharge Data Allergies Allergy/AdvReac Type Severity Reaction Status Date / Time oxycodone AdvReac Severe GI SYMPTOMS Verified 01/12/23 15:48 Consultations 01/12/23 14:59 ED Decision to Admit Stat 01/12/23 16:54 Consult Gastroenterology Routine Procedures Performed Operation Date: 01/13/23 16:30 Actual Procedures p Colonoscopy Polypectomy - Alexandr Wyatt MD Ordered Studies 01/12/23 15:30 CT Abd and Pelvis [CT abd pelvis IV con only] Routine CT chest diagnostic wo con Routine Hospital Course (1) Rectal mass: Patient presents with acute worsening of rectal pain/fullness and feeling of a mass protruding from rectum - -CT scan of chest abdomen and pelvis negative for abnormalities, Colonoscopy was able to get to Cecum, did remove rectal polyp with a hot snare, biopsy a rectal nodule and see non bleeding internal hemorrhoids Biopsy results pending tolerated advance diet Lab studies confirm iron deficiency anemia, will augment on dc, may even use mvi with iron and dietary iron sources (2) Difficulty in urination: resolved, may consider flomax (3) Hypokalemia: Replete Total Time Total Time Spent Total Time Spent (In Minutes): it required greater than 30 minutes to prepare this patient for discharge Discharge Plan Discharge Items Patient Disposition: Home - Self-Care Reason For Visit: RECTAL MASS Discharge Diagnosis: rectal polyp removed rectal nodule biopsied anemia, iron deficiency Activity: Resume your previous activity 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-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 Call non-emergency contact if: your symptoms worsen Follow-up/Referrals: Alvin Johnson DO [Primary Care Provider] - Alexandr Wyatt MD [Physician] - Diet: Regular Addtl Attending Provider Instructions: you will be prescribed iron to take every other day for one month then may take a multiple vitamin with iron your pathology results are pending at the time of your discharge, will recommend to follow up with your primary care and also the telephonic nurse office for results your blood count is stable at the time of discharge, given the polyp removal, some people may have scant bleeding for the first few days after discharge, if it becomes a higher amount please return for re evaluation Pending Studies at Discharge: Yes Stand-Alone Forms: My [facility] [employer], Smoking Cessation Medications and DC Order Prescriptions: New ferrous sulfate [iron] 325 mg (65 mg iron) tablet 325 mg PO Q OTHER DAY Qty: 15 3RF Discharge Orders: Discharge Order (Routine); Ordered 01/14/23 Ordered By: Macario Dodge Admission Data Admit Date/Time: 01/12/23 15:41 Attending Provider: Macario Dodge Admit Provider: Andrea Barlow Primary Care Provider: Alvin Johnson Other Providers: Andrea Barlow ; Alexandr Wyatt Other Interventions: Discharge Summary Assessment (RN) Last Done: 01/13/23 12:06 Coding Level of Care Code 63851 INP/OBS DISCH >30 MIN Diagnoses Rectal mass K62.89 Difficulty in urination R39.198 Hypokalemia E87.6
--- NOTE | 2023-01-14 19:05 | History & Physical Report ---
Date of Service January 14, 2023 Assessment & Plan (1) Rectal mass: Plan: Patient presents with acute worsening of rectal pain/fullness and feeling of a mass protruding from rectum - -CT scan of chest abdomen and pelvis negative for abnormalities, Colonoscopy was able to get to Cecum, did remove rectal polyp with a hot snare, biopsy a rectal nodule and see non bleeding internal hemorrhoids Biopsy results pending tolerated advance diet Lab studies confirm iron deficiency anemia, will augment on dc, may even use mvi with iron and dietary iron sources (2) Difficulty in urination: Plan: resolved, may consider flomax (3) Hypokalemia: Plan: Replete Admission and Anticipated Discharge Date Admission Date: January 12, 2023 History of Present Illness Primary Care Provider: Alvin Johnson DO Allergies Allergy/AdvReac Type Severity Reaction Status Date / Time oxycodone AdvReac Severe GI SYMPTOMS Verified 01/12/23 15:48 Home Medications Medication Instructions Recorded Confirmed Type ferrous sulfate 325 mg (65 mg 325 mg PO Q OTHER DAY #15 tabs 01/14/23 Rx iron) tablet (iron) tamsulosin 0.4 mg capsule (Flomax) 0.4 mg PO HS #30 caps 01/14/23 Rx Past Med/Surg History Medical History (Updated 01/12/23 @ 19:48 by Aaron Sebastian DO) Bright red blood per rectum Diarrhea H/O meningioma of the brain (~2009) no surgical intervention. History of COVID-19 tested positive 10/2020 -> cough, fever, chills, SOB, & fatigue. +covid pneumonia. no hospitalization. tested positive 12/04/20. mild cough, no fever, no chills, mild SOB with fatigue still. Surgical History History of back surgery lumbar History of colonoscopy S/P shoulder surgery S/P wisdom tooth extraction Family History (Updated 01/12/23 @ 16:01 by KENY Springer) Mother Colorectal cancer Cancer breast cancer and colon cancer Father Prostate cancer Other No family history of adverse response to anesthesia Denies family history of Ovarian cancer Myocardial infarction Breast cancer Social History Smoking Status: Former smoker Tobacco Type: Cigarettes Age Started Using Tobacco: 14; Age Quit Using Tobacco: 18; packs per day: 0.5; Second Hand Exposure: No; Do You Dip or Chew Tobacco: No; Hx Alcohol Use: No Hx Substance Use: No Preferred Language: Vietnamese Communication Ability: Effective Visual Impairment: No Limitations Hearing Ability: Normal 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 Other Information That Helps Us Care for You: No Feels Safe at Home: Yes Childhood Exposure to Second-Hand Smoke: No Diet: regular Dental Care, Regularly: Yes Physical Activity Frequency: 3-4 Times per Week Seatbelt Use: always Sunscreen Use: No Assistive Devices: None Results & Data Results & Data Vital Signs (Past 12 Hours) Vital Signs Temp Pulse Resp BP Pulse Ox O2 Del Method 01/14/23 14:17 98.6 F 79 16 116/71 96 Room Air 01/14/23 07:36 98.2 F 65 16 113/72 96 Room Air Code Status & VTE Plan VTE Prophylaxis Plan VTE Prophylaxis will be ordered: Yes PG Care Time/CCT Total # of Minutes Spent Total Time Spent with Patient: Total time spent is greater than 50% in coordination of care (as documented) at patient's floor/unit and/or counseling patient: Coding Diagnoses Rectal mass K62.89 Difficulty in urination R39.198 Hypokalemia E87.6
--- NOTE | 2023-01-14 23:05 | Electrocardiogram Report ---
Test Reason : Blood Pressure : / mmHG Vent. Rate : 084 BPM Atrial Rate : 084 BPM P-R Int : 140 ms QRS Dur : 084 ms QT Int : 358 ms P-R-T Axes : 069 -03 041 degrees QTc Int : 423 ms Normal sinus rhythm Normal ECG When compared with ECG of 13-OCT-2020 01:24, No significant change was found Confirmed by hSan Garcia ([id number]) on 01/14/2023 11:05:22 PM Referred By: Alvin Johnson Confirmed By:Shan Garcia
== END 2023-01-14 17:50 | disposition home or self-care (01) | DRG 394 ==
LOC: ED 11:43 → SUATTDRO 15:41 → 3N 15:41 → INTOOBSV 15:41 → 3N 16:26